=== PATIENT | female | born 2000 | race African-American/Black ===

== ENCOUNTER 2022-06-05 19:36 | Emergency (ER) | payer MEDICAID ==
[~2022-06-05] VITALS: Ht 167.6 cm; Wt 82.0 kg
[2022-06-05] MEDS ORDERED: ACETAMINOPHEN 325MG TABLET PO STA (21:07)
[2022-06-05] MEDS ORDERED: ONDANSETRON 4MG ODT PO STA (21:07)
[2022-06-05 21:24] LABS: CLARITY URINE CLEAR (CLEAR); COLOR URINE DARK YELLOW (YELLOW); KETONES URINE TRACE (NEGATIVE); LEUKOCYTE ESTERASE URINE NEGATIVE (NEGATIVE); NITRITE URINE NEGATIVE (NEGATIVE); OCCULT BLOOD URINE NEGATIVE (NEGATIVE); PH URINE 5.5 (4.5-8.0); PROTEIN URINE 1+ (NEGATIVE); SPECIFIC GRAVITY URINE 1.037 (1.005-1.030)
[2022-06-05 21:39] LABS: BASOPHILS % 0.1 % (0.0-2.0); EOSINOPHILS % 0.2 % (0.0-5.0); HEMOGLOBIN. 12.4 g/dL (12.0-16.0); LYMPHOCYTES % 7.4 % (20.0-50.0); MEAN CORPUSCULAR HEMOGLOBIN 27.1 pg (28.0-32.0); MEAN CORPUSCULAR VOLUME 83.2 fL (81.0-99.0); MEAN PLATELET VOLUME 7.8 fl (7.4-10.4); MONOCYTES % 8.6 % (2.0-8.0); NEUTROPHILS % 83.7 % (40.0-76.0); PLATELET 371 x1000/uL (130-400); RED BLOOD CELL COUNT 4.57 mill/uL (4.2-5.4); RED CELL DISTRIBUTION WIDTH 15.3 % (11.6-14.6)
[2022-06-05 21:47] LABS: CHLORIDE 107 mEq/L (98-107)
[2022-06-05 23:30] VITALS: BP 132/72
[2022-06-05] MEDS ORDERED: IBUP-2028 MT (23:31)
== END 2022-06-05 23:42 | disposition home or self-care (01) ==
LOC: ER 19:36
DX: R11.2 Nausea with vomiting, unspecified (principal); M79.18 Myalgia, other site; J45.909 Unspecified asthma, uncomplicated; Z87.440 Personal history of urinary (tract) infections; K59.00 Constipation, unspecified
CPT/HCPCS: 36415; 80053; 81003; 81025; 83690; 85025; 99283; Q0162

== ENCOUNTER 2022-09-24 17:05 | Emergency (ER) | payer MEDICAID ==
[~2022-09-24] VITALS: Ht 165.1 cm; Wt 70.0 kg
[~2022-09-24 17:05] MED LIST: IBUP-2028 MT
[2022-09-24 17:08] VITALS: BP 129/65
== END 2022-09-24 22:06 | disposition home or self-care (01) ==
LOC: ER 17:05
DX: K29.70 Gastritis, unspecified, without bleeding (principal); K21.9 Gastro-esophageal reflux disease without esophagitis; J45.909 Unspecified asthma, uncomplicated; Z87.440 Personal history of urinary (tract) infections
CPT/HCPCS: 99281